=== PATIENT | male | born 1955 | race Caucasian/White ===

== ENCOUNTER 2019-07-12 22:40 | Emergency (ER) | payer OTHER ==
[~2019-07-12] VITALS: Ht 185.4 cm; Wt 113.4 kg
[~2019-07-12 22:40] MED LIST: ABILIFY20 MG PO; ADDERALL 30 MG30 MG PO; ANTIVERT25 MG PO; BUPROPION XL300 MG PO; CLONAZEPAM 1 MG1 M1 PO; GLEEVEC400 MG PO; HYDROCHLOROTH12.5 M1 PO; LISINOPRIL20 MG PO; MELOXICAM7.5 MG PO; MIRALAX255 GM PO; NORFLEX100 MG PO; OXYCODONE HCL5 M1 PO; PEPCID COMPLET1 EACH PO; PERCODAN TABLE1 EACH PO; PRINIVIL20 MG PO; PROTONIX40 M1 PO; RISPERDAL2 MG PO; TOPROL XL50 MG PO; ZOFRAN8 MG PO
[2019-07-12] MEDS ORDERED: CLONIDINE HCL0.2 M2 PO (23:04)
[2019-07-12] MEDS ORDERED: ATENOLOL 100MG100 MG PO (23:04)
[2019-07-12 23:51] LABS: URINE BILIRUBIN NEGATIVE (Negative); URINE BLOOD NEGATIVE (Negative); URINE CLARITY CLEAR; URINE COLOR YELLOW; URINE GLUCOSE-RANDOM* NEGATIVE (Negative); URINE KETONES NEGATIVE (Negative); URINE LEUKOCYTES-REFLEX NEGATIVE (Negative); URINE NITRITE-REFLEX NEGATIVE (Negative); URINE PROTEIN (DIPSTICK) NEGATIVE (Negative); URINE SPECIFIC GRAVITY 1.015 (1.005-1.035); URINE UROBILINOGEN 0.2 E.U./dl (0.2-1.0)
[2019-07-12 23:53] LABS: ABSOLUTE NEUTROPHILS 7.8 thou/uL (1.4-8.2); BASOPHILS 1.4 % (0.0-2.0); EOSINOPHILS 2.8 % (0.0-3.0); HEMATOCRIT 39.1 % (42.0-52.0); HEMOGLOBIN 12.8 gm/dL (14.0-18.0); MCH 27.5 pg (26.0-34.0); MCHC 32.6 g/dL (28.0-37.0); MCV 84.4 fL (80.0-100.0); MONOCYTES 9.2 % (1.0-8.0); PLATELET COUNT 398 thou/uL (150-400); POLYS 69.6 % (36.0-66.0); RBC 4.63 mil/uL (4.50-6.00); RDW 16.1 % (10.5-14.5); WBC 11.2 thou/uL (4.0-11.0)
[2019-07-12 23:59] LABS: ANION GAP 5 mmol/L (7-16); BUN 18 mg/dL (7-18); CALCIUM 9.3 mg/dL (8.5-10.1); CHLORIDE 98 mmol/L (98-107); CO2 31 mmol/L (21-32); CREATININE 1.1 mg/dL (0.7-1.3); GLUCOSE 108 mg/dL (74-106); POTASSIUM 4.4 mmol/L (3.5-5.1); SODIUM 134 mmol/L (136-145)
[2019-07-13 00:01] LABS: AMP/METHAMP POSITIVE (Negative); BARBITURATES Negative (Negative); BENZODIAZEPINES Negative (Negative); COCAINE Negative (Negative); METHADONE Negative (Negative); OPIATES Negative (Negative); PCP Negative (Negative)
[2019-07-13 00:08] LABS: TROPONIN-I <0.06 ng/mL (<0.06)
[2019-07-13 02:08] VITALS: BP 164/79
--- NOTE | 2019-07-13 07:51 | EKG ---
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
== END 2019-07-13 02:15 | disposition home or self-care (01) ==
LOC: ER 22:40
PROVIDERS: Emergency Medicine
DX: I10 Essential (primary) hypertension (principal); F17.210 Nicotine dependence, cigarettes, uncomplicated; F31.9 Bipolar disorder, unspecified; Z86.2 Personal history of diseases of the blood and blood-forming organs and certain disorders involving the immune mechanism

== ENCOUNTER 2019-08-19 19:15 | Emergency (ER) | payer OTHER ==
[~2019-08-19] VITALS: Ht 185.4 cm; Wt 108.9 kg
[~2019-08-19 19:15] MED LIST changes: +ATENOLOL 100MG100 MG PO; +CLONIDINE HCL0.2 M2 PO
[2019-08-19 19:58] LABS: URINE BLOOD TRACE (Negative); URINE CLARITY CLEAR; URINE COLOR YELLOW; URINE GLUCOSE-RANDOM* NEGATIVE (Negative); URINE KETONES NEGATIVE (Negative); URINE LEUKOCYTES 1+ (Negative); URINE NITRITE NEGATIVE (Negative); URINE PROTEIN (DIPSTICK) NEGATIVE (Negative); URINE UROBILINOGEN 0.2 E.U./dl (0.2-1.0)
[2019-08-19 20:01] LABS: ICTOTEST (BILI CONFIRMATORY) Negative (Negative); URINE BILIRUBIN NEGATIVE (Negative)
[2019-08-19 20:13] LABS: CASTS None Seen /LPF (None Seen); CRYSTALS None Seen /LPF (None Seen); SQUAMOUS None Seen /LPF (0-3); URINE RBC 0-2 Rare /HPF (0-2); URINE WBC >25 Many /HPF (0-5)
[2019-08-19 20:14] LABS: BACTERIA 1-9 Few /HPF (None Seen)
[2019-08-19 20:51] LABS: HEMATOCRIT 37.4 % (42.0-52.0); MCH 26.5 pg (26.0-34.0); MCHC 32.1 g/dL (28.0-37.0); MCV 82.8 fL (80.0-100.0); PLATELET COUNT 428 thou/uL (150-400); RBC 4.52 mil/uL (4.50-6.00); RDW 15.7 % (10.5-14.5); WBC 9.9 thou/uL (4.0-11.0)
[2019-08-19 21:00] LABS: CALCIUM 9.6 mg/dL (8.5-10.1); CREATININE 1.3 mg/dL (0.7-1.3); POTASSIUM 4.2 mmol/L (3.5-5.1)
[2019-08-19 21:08] LABS: ALBUMIN 3.6 g/dL (3.4-5.0); TOTAL BILIRUBIN 0.5 mg/dL (<0.1-1.0); TOTAL PROTEIN 7.9 g/dL (6.4-8.2)
[2019-08-19 21:16] LABS: ANISOCYTOSIS 1+
[2019-08-19] MEDS ORDERED: KEFLEX500 M1 PO (22:46)
[2019-08-19 23:00] VITALS: BP 178/91
--- NOTE | 2019-08-20 11:56 | EKG ---
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1955 Requested By: Wayne Wolfe Order Number: [id number] MD: Lui Pacheco Measurements Intervals [place] Rate: 95 P: 5 MN: 166 QRS: -27 QRSD: 90 T: 34 QT: 367 QTc: 462 Interpretive Statements Sinus rhythm RSR' in V1 or V2, probably normal variant Inferior infarct, old Poor R wave progression Compared to ECG 07/12/2019 22:51:10 Inferior Q waves are more prominent Electronically Signed On 08-20-2019 11:56:00 CDT by Lui Pacheco [email or web address] ��������������������������������������������� <ELECTRONICALLY SIGNED> ���������������������������������������� By: Lui Pacheco MD, [facility] ��������������������������������������������� 08/20/19 1156 03 03 Lui Pacheco MD, [facility] /EPI
== END 2019-08-19 23:00 | disposition home or self-care (01) ==
LOC: ER 19:15
PROVIDERS: Nurse Practitioner
DX: N39.0 Urinary tract infection, site not specified (principal); R53.1 Weakness; C49.A0 Gastrointestinal stromal tumor, unspecified site; I10 Essential (primary) hypertension; F31.9 Bipolar disorder, unspecified; F17.210 Nicotine dependence, cigarettes, uncomplicated; Z86.2 Personal history of diseases of the blood and blood-forming organs and certain disorders involving the immune mechanism

== ENCOUNTER 2019-08-30 15:00 | Inpatient (IN) | payer OTHER ==
[~2019-08-30] VITALS: Ht 185.4 cm; Wt 109.8 kg
[~2019-08-30 15:00] MED LIST changes: +KEFLEX500 M1 PO
[2019-08-30 21:00] VITALS: BP 186/88
[2019-08-30 21:05] VITALS: BP 186/88
[2019-08-30] MEDS ORDERED: PEPCID AC10 MG PO (21:10)
[2019-08-30] MEDS ORDERED: BIOTENE MOIST44.3 ML (21:12)
[2019-08-30 23:41] VITALS: BP 153/115
--- NOTE | 2019-08-31 02:03 | NUR ---
Pt arrived on unit at 2100 by himself.A/OX4,denies pain on assessments. No N/V. Reports he has had several falls at home d/t his BP,fall education reinforced and pt agrees to call for help. Fall precautions initiated. Call made to Dr.C Kee twice with no success returned call stated he didn't know pt and had contacted about it but he didn't call back,okay to start pt on the meds he wants for now and have follow up tomorrow. Pt had home meds,signed and sent to pharmacy. One of his home med cleared by pharmacy for hospital use. Pt resting quietly at this time,will continue to monitor pt.Bed alarm on and call light within reach.
[2019-08-31 05:10] VITALS: BP 166/84
[2019-08-31 07:46] VITALS: BP 190/101
[2019-08-31 09:14] LABS: ABSOLUTE NEUTROPHILS 4.4 thou/uL (1.4-8.2); BASOPHILS 2.1 % (0.0-2.0); EOSINOPHILS 4.9 % (0.0-3.0); HEMATOCRIT 33.2 % (42.0-52.0); HEMOGLOBIN 10.5 gm/dL (14.0-18.0); LYMPHOCYTES 21.9 % (24.0-44.0); MCH 26.3 pg (26.0-34.0); MCHC 31.5 g/dL (28.0-37.0); MCV 83.5 fL (80.0-100.0); MONOCYTES 7.9 % (1.0-8.0); PLATELET COUNT 328 thou/uL (150-400); POLYS 63.2 % (36.0-66.0); RBC 3.98 mil/uL (4.50-6.00); WBC 6.9 thou/uL (4.0-11.0)
[2019-08-31 09:22] LABS: ALBUMIN 3.1 g/dL (3.4-5.0); CALCIUM 8.5 mg/dL (8.5-10.1); CREATININE 0.8 mg/dL (0.7-1.3); POTASSIUM 3.8 mmol/L (3.5-5.1); TOTAL BILIRUBIN 0.4 mg/dL (<0.1-1.0); TOTAL PROTEIN 6.5 g/dL (6.4-8.2)
[2019-08-31 14:52] LABS: % SATURATION 18 % (20-39); IRON 45 ug/dL (65-175); TIBC 255 ug/dL (250-450)
--- NOTE | 2019-08-31 14:53 | NUR ---
PT ADMITTED RELATED TO HTN,GIST. CM REVIEWED CHART AND SPOKE WITH CARE TEAM. CM MET WITH PT AT BEDSIDE THIS DAY. PT IS A&O X4. CM ROLE INTRODUCED. PT INDICATED HE LIVES IN A HOUSE WITH HIS DTR DAVIAN WITH 1 STEP TO ENTER AND 3-4 STEPS INSIDE. 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 HE INDICATED NO DME OR HH HX. PT INIDCATED HE PLANS TO RETURN HOME ONCE MEDICALLY STABLE. CM TO FOLLOW INDICATED WITH DC PLANNING.
[2019-08-31 16:41] VITALS: BP 130/79
--- NOTE | 2019-08-31 18:24 | NUR ---
ASSUMED CARE 0700. DENIES PAIN, UP WITH STAND BY, ABD SCAN AND CHEST XRAY COMPLETED. ONCONOLGY CONSULTED. BLOOD PRESSURES IMPROVING. FALL PRECATION REMAIN IN PLACE. CONTINUE MONITOR.
[2019-08-31 19:16] VITALS: BP 126/64
--- NOTE | 2019-09-01 04:55 | NUR ---
Assumed pt care at 1900. Pt's A/OX, VSS. Up with SBA,reminded to call for help when getting OOB d/t fall risk related to BP issues. Bed alarm on. Denies pain on N/V on assessment.Resting quietly at this time without distress will continue to monitor pt.
[2019-09-01 05:54] LABS: HEMATOCRIT 34.2 % (42.0-52.0); HEMOGLOBIN 10.9 gm/dL (14.0-18.0); MCH 26.4 pg (26.0-34.0); MCV 82.5 fL (80.0-100.0); RBC 4.14 mil/uL (4.50-6.00); RDW 15.7 % (10.5-14.5); WBC 7.7 thou/uL (4.0-11.0)
[2019-09-01 06:02] LABS: PROTIME 10.2 Seconds (9.3-11.4)
[2019-09-01 06:17] LABS: ALBUMIN 2.9 g/dL (3.4-5.0); CALCIUM 8.5 mg/dL (8.5-10.1); CREATININE 0.8 mg/dL (0.7-1.3); POTASSIUM 3.7 mmol/L (3.5-5.1); TOTAL BILIRUBIN 0.3 mg/dL (<0.1-1.0)
[2019-09-01 08:02] VITALS: BP 133/85
--- NOTE | 2019-09-01 08:35 | H ---
[facility] [place] [address] HISTORY AND PHYSICAL Name: MARY KATE BARRIOS Room #: 464-P ADM IN M.R.#: [id number] Admission: 08/30/19 Attend Phys: Pia Sanchez Discharge: Date of : 57 Report #: [id number] THIS REPORT FOR: //name// CC: Abdiel Kee ATTENDING PHYSICIAN: Dr. Kee. CHIEF COMPLAINT: Elevated blood pressure. HISTORY OF PRESENT ILLNESS: The patient is a 63-year-old gentleman who was admitted from the office yesterday with uncontrolled hypertension. He was in for a routine visit noted blood pressure of approximately 170/110. He was directed for admission. He also has a history of gastrointestinal stromal tumor dating back to 2012. He had previously been on Gleevec, but may be some issues as lost to follow up with his oncologist. It is not clear how long he has been off the medication and there was some concern from the office of whether this uncontrolled tumor could be contributing to any of his hypertensive issues. PAST MEDICAL HISTORY: Hypertension, GIST from 2012. He has a history of sepsis and hospitalization in 2013 with initial diagnosis was made at [facility]. PAST SURGICAL HISTORY: None. FAMILY HISTORY: Noncontributory. SOCIAL HISTORY: Denies chronic alcohol or tobacco use. ALLERGIES: None. HOME MEDICATIONS: Clonazepam 2 mg at night, Gleevec 400 mg, Pepcid, Adderall, lisinopril 20 mg, Abilify 20 mg, clonidine 0.2 mg b.i.d., atenolol 100 mg, Keflex. REVIEW OF SYSTEMS: He denies headache, chest pain, shortness of breath, abdominal pain, nausea, vomiting, diarrhea, constipation, dysuria, syncope. OBJECTIVE: VITAL SIGNS: He has been afebrile, pulse 68, blood pressure 160/95. GENERAL: He is awake and alert, sitting up in bed, eating lunch. HEAD AND NECK: Unremarkable. LUNGS: Clear. HEART: Regular. ABDOMEN: Soft, normoactive bowel sounds. EXTREMITIES: No edema. NEUROLOGIC: Intact. No focal deficits. LABORATORY REVIEW: Hemoglobin 10.5. Creatinine normal. Albumin 3.1. Chest [facility] [address] [place] [address] HISTORY AND PHYSICAL Name: MARY KATE BARRIOS Room #: 464-P ADM IN [facility]#: [id number] Admission: 08/30/19 Attend Phys: Pia Sanchez Discharge: Date of : 57 Report #: [id number] x-ray negative. CT abdomen; large mass in the duodenum and the right lobe of the liver. ASSESSMENT: 1. Uncontrolled hypertension. 2. Gastric tumor. 3. Anemia of chronic disease. 4. Mild protein-calorie malnutrition, albumin 3.1. PLAN: I have adjusted his antihypertensive regimen to carvedilol, amlodipine and lisinopril. Discontinue the clonidine and atenolol now if there is some co-interaction there with rebound hypertension. The Oncology and GI services have assessed him and they are proceeding with any additional workup for restaging of his gastric stromal tumor. <ELECTRONICALLY SIGNED> By: Jacky Judd MD 09/01/19 0835 1301 1319 Jacky Judd MD /nt
[2019-09-01] MEDS ORDERED: CARVEDILOL25 MG PO (09:13)
[2019-09-01] MEDS ORDERED: AMLODIPINE BESY10 MG PO (09:14)
[2019-09-01] MEDS ORDERED: LISINOPRIL20 MG PO (09:14)
[2019-09-01 12:44] VITALS: BP 133/85
--- NOTE | 2019-09-01 12:47 | NUR ---
PATIENT CLEARED TO DISCHARGE HOME WITHOUT NEEDS PER DR ERWIN. IV REMOVED. REVIEWED MEDICATIONS RX, DISCHARGE SIGNED.
[2019-11-04] MEDS ORDERED: CLINDAMYCIN HC300 MG PO
[2019-11-04] MEDS ORDERED: OXYCODONE HCL 55 MG PO
== END 2019-09-01 14:36 | disposition home or self-care (01) | DRG 305 ==
LOC: 4W 15:00
PROVIDERS: Internal Medicine Gastroenterology; Internal Medicine Geriatric Medicine; Nurse Practitioner; ADMIT Internal Medicine
DX: I16.0 Hypertensive urgency (principal); C49.A2 Gastrointestinal stromal tumor of stomach; E44.1 Mild protein-calorie malnutrition; I16.9 Hypertensive crisis, unspecified; I10 Essential (primary) hypertension; D63.8 Anemia in other chronic diseases classified elsewhere; I48.91 Unspecified atrial fibrillation; Z68.31 Body mass index [BMI] 31.0-31.9, adult; Z23 Encounter for immunization; Z79.899 Other long term (current) drug therapy
CPT/HCPCS: 10047

== ENCOUNTER 2019-11-04 22:11 | Emergency (ER) | payer OTHER ==
[~2019-11-04] VITALS: Ht 185.4 cm; Wt 104.3 kg
[~2019-11-04 22:11] MED LIST changes: +AMLODIPINE BESY10 MG PO; +BIOTENE MOIST44.3 ML; +CARVEDILOL25 MG PO; +CLINDAMYCIN HC300 MG PO; +OXYCODONE HCL 55 MG PO; +PEPCID AC10 MG PO
[2019-11-04] MEDS ORDERED: CLONIDINE HCL0.2 M2 PO (23:39)
[2019-11-04] MEDS ORDERED: PROTONIX40 M2 PO (23:40)
[2019-11-04] MEDS ORDERED: SILDENAFIL CIT100 MG PO (23:40)
[2019-11-04] MEDS ORDERED: ABILIFY10 MG PO (23:41)
[2019-11-04] MEDS ORDERED: LISINOPRIL-HCT1 EAC1 PO (23:43)
[2019-11-04] MEDS ORDERED: ATENOLOL 100MG100 MG PO (23:43)
[2019-11-05 00:20] VITALS: BP 208/86
== END 2019-11-05 00:20 | disposition home or self-care (01) ==
LOC: ER 22:11
DX: K04.7 Periapical abscess without sinus (principal); L03.211 Cellulitis of face; I10 Essential (primary) hypertension; Z76.0 Encounter for issue of repeat prescription; Z87.891 Personal history of nicotine dependence; Z79.899 Other long term (current) drug therapy; Z85.05 Personal history of malignant neoplasm of liver